=== PATIENT | female | born 1985 | race Caucasian/White ===

== ENCOUNTER → 2016-10-23 | Outpatient (CLI) | payer BC ==
[2016-10-23 17:59] LABS: Rheumatoid Factor, Qnt <9 IU/mL (<12)
[2016-10-23 18:00] LABS: C Reactive Protein <5.0 mg/L (<10.0)
[2016-10-24 01:29] LABS: ANA w/Reflex to Titer NEGATIVE (NEGATIVE); RNP AB Interpretation NEGATIVE (NEGATIVE)
[2016-10-24 11:03] LABS: HLA B27 NEGATIVE; HLA B27 Comment SEEBELOW
[2016-10-26 08:21] LABS: Lyme IgG/IgM 0.4 Index; Lyme IgG/IgM Interp NEGATIVE (NEGATIVE)
== END | disposition home or self-care (01) ==
LOC: LABWHC1 17:26
PROVIDERS: ATTEND Nurse Practitioner Family
DX: M26.609 Unspecified temporomandibular joint disorder, unspecified side (principal); M25.50 Pain in unspecified joint; M54.2 Cervicalgia; H93.233 Hyperacusis, bilateral; H92.03 Otalgia, bilateral
CPT/HCPCS: 36415; 85652; 86038; 86140; 86235; 86431; 86618; 86812

== ENCOUNTER 2018-02-28 17:49 | Emergency (ER) | payer BC ==
[2018-02-28 18:03] VITALS: RESP 18
--- NOTE | 2018-02-28 18:24 | XR ---
EXAMINATION TYPE: XR chest 2V DATE OF EXAM: 02/28/2018 COMPARISON: NONE HISTORY: Cough and congestion TECHNIQUE: Frontal and lateral views of the chest are obtained. FINDINGS: Heart and mediastinum are normal. Lungs are clear. Diaphragm is normal. Bony thorax appear s normal. IMPRESSION: Normal chest
--- NOTE | 2018-02-28 19:54 | ED ---
General Adult HPI - General Chief complaint: Upper Respiratory Infection Stated complaint: chest congestion/vomiting Time Seen by Provider: 02/28/18 18:43 Source: patient, RN notes reviewed Mode of arrival: ambulatory Limitations: no limitations - History of Present Illness Initial comments: Patient 32-year-old female presenting to the emergency room today with a chief complaint of cough congestion over the last 2 months. Patient does admit that she's had pain to the left side of the chest wall into the back. States that she has been seen by the family doctor multiple times for this. Was started on 2 different rounds of antibiotics. Was given steroids as well. She states she' s had little relief. States still expressing some pain. Does admit that it's worse with coughing and congestion. She denies any other symptoms. Denies any control use. Denies any long travel. leg pain. Patient denies any recent fever, chills, shortness of breath, chest pain, back pain, abdominal pain , dysuria or hematuria, constipation or diarrhea, headaches or visual changes, or any other complaints. - Related Data Home Medications Medication Instructions Recorded Confirmed Baclofen [Lioresal] 10 mg PO HS 08/16/14 08/16/14 Control 08/16/14 08/16/14 DULoxetine HCL [Cymbalta] 60 mg PO DAILY 08/16/14 08/16/14 HYDROcodone/APAP 7.5-325MG [[place] 1 each PO DAILY PRN 08/16/14 08/16/14 7.5-325] Previous Rx's Medication Instructions Recorded Azithromycin [Zithromax Z-pack] 0 mg PO DIRECTED #6 tab 02/28/18 Benzonatate [Tessalon Perles] 100 mg PO TID PRN #20 capsule 02/28/18 Ibuprofen [Motrin] 600 mg PO Q6HR PRN #40 day 02/28/18 predniSONE 50 mg PO DAILY #5 tab 02/28/18 Allergies Allergy/AdvReac Type Severity Reaction Status Date / Time No Known Allergies Allergy Verified 08/16/14 17:50 Review of Systems ROS Statement: Those systems with pertinent positive or pertinent negative responses have been documented in the HPI. ROS Other: All systems not noted in ROS Statement are negative. Past Medical History Past Medical History: Fibromyalgia History of Any Multi-Drug Resistant Organisms: None Reported Past Surgical History: Section Past Psychological History: Anxiety, Depression Smoking Status: Former smoker Past Alcohol Use History: Rare Past Drug Use History: Marijuana General Exam - General Exam Comments Initial Comments: General: The patient is awake and alert, in no distress, and does not appear acutely ill. Eye: Pupils are equal, round and reactive to light, extra-ocular movements are intact. No nystagmus. There is normal conjunctiva bilaterally. No signs of icterus. Ears, nose, mouth and throat: There are moist mucous membranes and no oral lesions. Neck: The neck is supple, there is no tenderness or JVD. Cardiovascular: There is a regular rate and rhythm. No murmur, rub or gallop is appreciated. Tender to palpation over the left side of the chest wall. Respiratory: Lungs are clear to auscultation, respirations are non-labored, breath sounds are equal. No wheezes, stridor, rales, or rhonchi. Musculoskeletal: Normal ROM, no tenderness. Strength 5/5. Sensation intact. Pulses equal bilaterally 2+. Neurological: A&O x 3. CN II-XII intact, There are no obvious motor or sensory deficits. Coordination appears grossly intact. Speech is normal. Skin: Skin is warm and dry and no rashes or lesions are noted. Psychiatric: Cooperative, appropriate mood & affect, normal judgment. Limitations: no limitations Course Vital Signs 02/28/18 18:00 Temperature 98.4 F Pulse Rate 98 Respiratory 18 Rate Blood Pressure 135/90 O2 Sat by Pulse 99 Oximetry Medical Decision Making - Medical Decision Making Case discussed in detail with attending physician Dr. Corey. Patient's chest x-ray reviewed is negative for any acute abnormality. Patient does admit that she's had this cough is congestion over the last 2 months with some pain into the left side of the chest wall. Pain is reproduced on palpation to the chest. Patient does admit that she's tried antibiotics in the past but is been over a month she's had increased sputum production recently. Patient denies any travel. Denies any leg pain. Patient's vital stable. Patient will be treated with azithromycin, steroids, anti-inflammatories for pain. Follow-up family doctor. Disposition Clinical Impression: Costochondritis Disposition: HOME SELF-CARE Condition: Good Instructions: Costochondritis (ED) Additional Instructions: Please use medication as discussed. Please follow-up with family doctor in the next 2 days of symptoms have not improved. Please return to emergency room if the symptoms increase or worsen or for any other concerns. Prescriptions: Azithromycin [Zithromax Z-pack] 0 mg PO DIRECTED #6 tab Benzonatate [Tessalon Perles] 100 mg PO TID PRN #20 capsule PRN Reason: Cough Ibuprofen [Motrin] 600 mg PO Q6HR PRN #40 day PRN Reason: Pain predniSONE 50 mg PO DAILY #5 tab Is patient prescribed a controlled substance at d/c from ED?: No Referrals: Liv Shea MD [Primary Care Provider] - 1-2 days Time of Disposition: 19:57
[2018-02-28 20:21] VITALS: BP 111/65; PULSE 84; TEMP 97.5
== END 2018-02-28 20:21 | disposition home or self-care (01) ==
LOC: EC 17:49
DX: M94.0 Chondrocostal junction syndrome [Tietze] (principal); R05 Cough; R11.0 Nausea; M79.7 Fibromyalgia; F41.9 Anxiety disorder, unspecified; F32.9 Major depressive disorder, single episode, unspecified; Z87.891 Personal history of nicotine dependence; Z79.3 Long term (current) use of hormonal contraceptives; Z79.899 Other long term (current) drug therapy
CPT/HCPCS: 71046; 99283

== ENCOUNTER → 2018-03-18 | Outpatient (CLI) | payer BC ==
--- NOTE | 2018-03-18 09:43 | CT ---
EXAMINATION TYPE: CT chest wo con DATE OF EXAM: 03/18/2018 COMPARISON: Chest x-ray February 28, 2018 HISTORY: Cough CT DLP: 243.1 mGycm. Automated Exposure Control for Dose Reduction was Utilized. TECHNIQUE: CT scan of the thorax is performed without IV contrast. High resolution protocol with 1 m m sequences obtained in 10 mm intervals in supine and prone technique FINDINGS: LUNGS: The lungs are grossly clear, there is no suspicious consolidation. No suspicious peripheral r eticulation or linear fibrosis identified bilaterally. No bronchiectasis is seen. There is no pleural effusion or pneumothorax seen. The tracheobronchial tree is patent. MEDIASTINUM: Lack of IV contrast is noted to limit evaluation for mediastinal and especially hilar ad enopathy. There are no definitive greater than 1 cm hilar or mediastinal lymph nodes. No cardiomega ly or pericardial effusion is seen. OTHER: No additional significant abnormality is seen. IMPRESSION: No suspicious acute or chronic pulmonary process.
== END ==
LOC: RADCTMAIN 06:54
PROVIDERS: ATTEND Internal Medicine Critical Care Medicine
DX: R05 Cough (principal)
CPT/HCPCS: 36415; 71250; 86001; 86606; 86609

== ENCOUNTER 2018-03-19 10:24 | Day surgery (SDC) | payer BC ==
[~2018-03-19 10:24] MED LIST: ALBUTEROL NEB (CONC) 2.5 MG/0.5 ML INHALATION ONE; ATROPINE SULFATE 0.4 MG/ML 1 ML VIAL IM ONE; LACTATED RINGERS 1,000 ML IV ONE; LACTATED RINGERS 1,000 ML IV SCH; LIDOCAINE 1% 20 ML VIAL (10MG/ML) FOR IV START INTRADERMA PRN; LIDOCAINE VISCOUS 2000 MG/100 ML BOTTLE MUCOUS MEM ONE
[2018-03-19 10:56] VITALS: TEMP 99
[2018-03-19] MEDS ORDERED: fentaNYL (PF) 50 MCG/ML 2 ML AMP ONE (12:04)
[2018-03-19] MEDS ORDERED: LIDOCAINE 1% INJ 10MG/ML (20 ML MDV) ONE (12:04)
[2018-03-19] MEDS ORDERED: diphenhydrAMINE 50 MG/ML 1 ML VIAL ONE (12:04)
[2018-03-19] MEDS ORDERED: PROPOFOL 10 MG/ML 20 ML VIAL IV ONE (12:04)
[2018-03-19] MEDS ORDERED: KETAMINE 10 MG/ML 20 ML VIAL ONE (12:04)
[2018-03-19] MEDS ORDERED: MIDAZOLAM 2 MG/2 ML VIAL ONE (12:04)
[2018-03-19] MEDS ORDERED: LIDOCAINE 2% INJ 20 MG/ML INTRATRACH ONE (12:22)
[2018-03-19 12:48] VITALS: BP 98/57; PULSE 108; RESP 18
--- NOTE | 2018-03-19 12:56 | PCN ---
PROCEDURE NOTE PROCEDURE: Bronchoscopy airway examination, therapeutic lavage, BAL right middle lobe. PREOPERATIVE DIAGNOSIS: Bronchitis. POSTOP DIAGNOSIS: Bronchitis. OPERATORS: 1. Aime Guo MD. 2. ELY Valentino. HOTEL RESERVATIONIST provided general anesthesia, unconscious sedation. The patient's. procedure was then in room #1 in the endoscopy suite and there was universal timeout and informed consent. After the patient was adequately sedated, the bronchoscope was inserted through the right nostril. It passed through the right nasopharynx into the oropharynx. The hypopharynx was identified and topicalized. The hypopharyngeal structures including anterior commissure, true cords, false cords, arytenoids, piriform sinuses, right and left vallecula and epiglottis all appeared relatively normal. After topicalization, bronchoscope was pushed through the glottic opening into the trachea. Trachea appeared normal. Tracheal alvin was sharp. Right and left mainstem were topicalized. Right upper lobe and its 3 segments, right middle lobe and its 2 segments, right lower lobe and its 5 segments, left upper lobe proper and its 2 segments, lingula and its 2 segments and left lower lobe and its 4 segments all have similar findings of very mild bronchitis. There was no mucosal friability. There was no mass or lesion. There was no significant secretions noted. There was no bleeding. The bronchoscope was wedged into the right middle lobe. The BAL took place. The patient tolerated the procedure well. The patient will be recovered. There was no immediate complication. MMODL / IJN: [id number] /
[2018-03-19 17:22] LABS: Appearance,BF Hazy; Color,BF Colorless; Nucleated Cells, Body Fluid 36 /uL; RBC, Body Fluid 9 /uL
[2018-03-19 17:26] LABS: Mononuclear WBC,Body Fluid 60 %; Polynuclear WBC,Body Fluid 40 %; Total Cells Counted,Body Fluid 100
[2018-03-19] MEDS ORDERED: LIDOCAINE HCL/PF 20 MG/ML ML INHALATION ONE (20:00)
== END 2018-03-19 13:15 | disposition home or self-care (01) ==
LOC: ORWHC2ENDO 10:24
PROVIDERS: ATTEND Internal Medicine Critical Care Medicine
DX: J40 Bronchitis, not specified as acute or chronic (principal); M79.7 Fibromyalgia; Z79.899 Other long term (current) drug therapy; Z87.891 Personal history of nicotine dependence; Z79.1 Long term (current) use of non-steroidal anti-inflammatories (NSAID)
CPT/HCPCS: 94640; 81025; 87798 ×3; 87496; 87498; 87529; 88108; 88305; 89050; 87252; 87502; 87634; 87070; 87205; 87116; 87102; 87206; 31624; J2001 ×3; J2250; J0461; J1200; J3010; J2704

== ENCOUNTER 2019-12-09 05:55 | Inpatient (IN) | payer BC ==
[2019-12-04 11:29] VITALS: BMI 32.4
--- NOTE | 2019-12-08 12:32 | P.HPOB ---
History of Present Illness H&P Date: 12/08/19 Chief Complaint: Repeat Section This patient is a pleasant 34 yr female estimated date of confinement 12/15/2019 estimated gestational age 39 1/7 weeks who presents for requested repeat section. has been uncomplicated. Review of Systems Genitourinary: Reports Menstruation: Reports amenorrhea Past Medical History Past Medical History: Fibromyalgia Additional Past Medical History / Comment(s): "mold found in lungs on bronchoscopy last year", History of Any Multi-Drug Resistant Organisms: None Reported Past Surgical History: Section Past Anesthesia/Blood Transfusion Reactions: Motion Sickness Past Psychological History: No Psychological Hx Reported Smoking Status: Former smoker Past Alcohol Use History: None Reported Past Drug Use History: None Reported - Past Family History Mother Family Medical History: Cancer Medications and Allergies Home Medications Medication Instructions Recorded Confirmed Type Iron(Dose Unknown) 1 tab PO DAILY 12/04/19 12/04/19 History Allergies Allergy/AdvReac Type Severity Reaction Status Date / Time No Known Allergies Allergy Verified 12/04/19 11:23 Exam - OBG Physical Exam Abdomen: bowel sounds normal Vulva: both: normal Vagina: normal moisture, no discharge Cervix: no lesion, no discharge Uterus: enlarged (Fundal height is 39 cm) Results bloodwork: O positive, Rubella Non-Immune, RPR-HepB negative, Glucola 114, GBS was negative, Ultrasounds have show normal anatomy/growth. Assessment and Plan Assessment: This is a pleasant 34 yr female 39 weeks gestation requesting repeat section. Plan is repeat LT C/S. I have discussed this surgery and risks: infection, bleeding, possible injury to bowel/bladder/vessels/ and/or other organs. Risk of DVT/PE. All of the patients questions were answered and a written consent obtained. (1) 39 weeks gestation of Status: Acute Code(s): Z3A.39 - 39 WEEKS GESTATION OF SNOMED Code(s): 39204594 (2) Previous delivery affecting Status: Acute Code(s): O34.219 - MATERNAL CARE FOR UNSP TYPE SCAR FROM PREVIOUS DEL SNOMED Code(s): 782384369
[2019-12-09] MEDS ORDERED: CITRIC ACID-SODIUM CITRATE 15 ML CUP PO ONE (06:08)
[2019-12-09] MEDS ORDERED: LACTATED RINGERS 1,000 ML IV ONE (06:08)
[2019-12-09 06:42] LABS: Basophils # (A) 0.1 k/uL (0-0.2); Basophils % (A) 1 %; Eosinophils # (A) 0.1 k/uL (0-0.7); Eosinophils % (A) 1 %; HCT 32.1 % (34.0-46.0); HGB 10.4 gm/dL (11.4-16.0); Lymphocytes # (A) 1.8 k/uL (1.0-4.8); Lymphocytes % (A) 17 %; MCH 28.7 pg (25.0-35.0); MCHC 32.3 g/dL (31.0-37.0); MCV 88.9 fL (80.0-100.0); Mean Platelet Volume 8.7; Monocytes # (A) 0.5 k/uL (0-1.0); Monocytes % (A) 5 %; Neutrophils # (A) 7.3 k/uL (1.3-7.7); Neutrophils % (A) 73 %; Platelet Count 322 k/uL (150-450); RBC 3.61 m/uL (3.80-5.40); RDW 14.3 % (11.5-15.5); WBC 10.1 k/uL (3.8-10.6)
[2019-12-09] MEDS: LACTATED RINGERS 1,000 ML IV SCH ×2 (07:27→16:28)
[2019-12-09] MEDS ORDERED: NALOXONE 0.4 MG/ML 1 ML VIAL IV PRN ×2 (08:28→08:54)
[2019-12-09] MEDS ORDERED: MORPHINE SULFATE 2 MG/ML SYRINGE IVP PRN (08:28)
[2019-12-09] MEDS ORDERED: diphenhydrAMINE 50 MG/ML 1 ML VIAL IVP PRN ×2 (08:28→08:54)
[2019-12-09] MEDS ORDERED: ONDANSETRON 4 MG/2 ML VIAL IVP PRN ×2 (08:28→08:54)
--- NOTE | 2019-12-09 08:32 | P.OP ---
Date of Procedure: 12/09/19 Preoperative Diagnosis: #1: 39 and one sevenths week intrauterine . #2: Previous section desires repeat. Postoperative Diagnosis: Same, nuchal cord 1 Procedure(s) Performed: Repeat low transverse section Anesthesia: spinal Surgeon: Chris Morales Head Holder #1: Keri Johnson Estimated Blood Loss (ml): 800 Pathology: none sent Condition: stable Disposition: observation Indications for Procedure: Please see dictated H&P for intimate details of this patient's admission. Brief summary is a pleasant 34-year-old 2 para 1 female 39 and one sevenths weeks gestation admitted to labor and delivery for elective repeat section. Patient understands the surgery and risks and risks of infection, bleeding, possible injury bowel, bladder, vessels, and/or other organs. All the patient's questions are answered written consent is obtained. Operative Findings: This is a vigorous viable female Apgars 8 and 9 delivery time is 0804 hrs. and nuchal cord 1 that was loose. Description of Procedure: This patient has a Lu catheter placed to straight drain. She subsequently taken to the operating room where she sat up and spinal anesthetic is admin istered without incident. With an adequate level of anesthesia she has abdominal prep and drape. Scalpels and taken Pfannenstiel skin incision is then made. A second scalpel is taken down the fascia the fascia scored with a knife. Fascial incision extended bilaterally using the Worley scissors. Fascia is then dissected off the rectus muscles sharply. The rectus muscles are the peritoneum identified and entered sharply. Peritoneal incision extended superior and inferior without difficulty. Bladder blade is then placed. The bladder is very low on the lower uterine segment therefore scalpel is taken low transverse uterine incision is made. Using a hemostat I into the uterine cavity bluntly and there is loss of clear fluid. This incision is extended bluntly. 's head is then guided through the incision with fundal pressure delivered. Mouth and nares are bulb suctioned. There is a loose nuchal cord which is reduced. We then deliver the rest this 's body. This is a vigorous viable female infant Apgars 8 and 9 delivery time was 0804 hrs. Umbilical cord is doubly clamped and cut does appear to be trivascular. Placenta is then manually extracted intact. Uterus is then externalized uterine incision demarcated with Montalvo clamps. Uterine incision is closed using 0 Vicryl running locked fashion 2 layers. Excellent hemostasis is noted. Excess fluid is removed from the abdomen and pelvis. Uterus tubes and ovaries appear normal for term gestation. Uterus placed back into the abdomen. Parietal peritoneum was then identified and closed using 0 Vicryl running fashion. Rectus muscle reapproximate 0 Vicryl interrupted fashion. Fascial incision is then closed using 0 PDS. Fascial incision is intact and hemostatic. Subcutaneous tissues and closed using a 3-0 Vicryl. Skin is and closed using leoncio. All counts correct 3. There are no complications. Infant and mother's taken to the birthing suite in satisfactory condition
[2019-12-09] MEDS ORDERED: ACETAMINOPHEN TAB 325 MG TAB PO PRN (08:54)
[2019-12-09] MEDS ORDERED: diphenhydrAMINE 25 MG CAP PO PRN (08:54)
[2019-12-09] MEDS ORDERED: OXYTOCIN 20 UNITS/1000 ML NS 1,000 ML IV SCH (08:54)
[2019-12-09] MEDS ORDERED: ZOLPIDEM 5 MG TAB PO PRN (08:54)
[2019-12-09] MEDS ORDERED: HYDROcodone/APAP 5-325MG 1 EACH TAB PO PRN (08:54)
[2019-12-09] MEDS ORDERED: SIMETHICONE 80 MG CHEWABLE PO PRN (08:54)
[2019-12-09] MEDS ORDERED: METOCLOPRAMIDE 5 MG/ML 2 ML VIAL IVP PRN (08:54)
[2019-12-09] MEDS ORDERED: LANOLIN CREAM 5 GM TUBE TOPICAL PRN (08:54)
[2019-12-09] MEDS: SENNOSIDES-DOCUSATE SODIUM 1 EACH TAB PO SCH ×2 (09:09→19:58)
[2019-12-09] MEDS ORDERED: MEASLES-MUMPS-RUBELLA VACC/PF 12,500 UNIT/0.5 ML VIAL SQ ONE (16:00)
[2019-12-09] MEDS: KETOROLAC 15 MG/ML 1 ML VIAL IVP PRN (19:57)
[2019-12-10] MEDS: KETOROLAC 15 MG/ML 1 ML VIAL IVP PRN (04:44)
--- NOTE | 2019-12-10 06:28 | P.PNOBGPC ---
Subjective - Subjective Patient reports: Reports appetite normal, Reports voiding normally, Reports pain well controlled, Reports ambulating normally : doing well Objective - Vital Signs Latest vital signs: Vital Signs Temp Pulse Resp BP Pulse Ox 12/10/19 00:46 15 12/10/19 00:00 98.1 F 61 16 106/66 12/09/19 22:36 15 12/09/19 21:00 16 97 12/09/19 20:00 97.9 F 67 16 119/66 12/09/19 19:00 97.9 F 67 16 119/66 12/09/19 16:51 16 96 12/09/19 16:00 97.7 F 65 16 110/58 96 12/09/19 15:00 16 12/09/19 13:28 98 12/09/19 13:00 16 12/09/19 11:50 97.6 F 76 16 110/66 98 12/09/19 11:28 16 12/09/19 10:28 82 16 113/58 98 12/09/19 09:58 98 F 81 16 112/68 99 12/09/19 09:28 86 16 105/54 98 12/09/19 09:13 75 16 100/59 98 12/09/19 08:58 87 16 105/58 98 12/09/19 08:43 80 16 93/51 98 12/09/19 08:28 97.3 F L 79 16 92/51 99 Intake and Output 12/09/19 12/09/19 12/10/19 14:59 22:59 06:59 Output Total 236 720 7828 Balance -100 -500 -1000 Output: Urine 540 249 4903 Other: Voiding Method Indwelling Catheter Indwelling Catheter # Voids 1 - Exam Lungs: bilateral: normal Chest: Normal S1, Normal S2 Extremities: Present: normal Abdomen: Present: normal appearance, soft. Absent: distention, tenderness Incision: Present: normal, dry, intact Uterus: Present: normal, firm - Labs Labs: Abnormal Lab Results - Last 24 Hours (Table) 12/09/19 Range/Units 06:19 RBC 3.61 L (3.80-5.40) m/uL Hgb 10.4 L (11.4-16.0) gm/dL Hct 32.1 L (34.0-46.0) % Assessment and Plan Assessment: Postoperative day #1. Patient is resting without complaints. Vital signs are stable and she is afebrile. Uterus is firm nontender and her incision is intact and dry. CBC is pending at time of this dictation. My impression this is a normal postoperative course. Plan is to continue routine postoperative care, check a CBC, continue ambulation, allow the patient to shower, and may very well go home tomorrow if she continues to do well (1) 39 weeks gestation of Current Visit: No Status: Acute Code(s): Z3A.39 - 39 WEEKS GESTATION OF SNOMED Code(s): 80909619 (2) Previous delivery affecting Current Visit: No Status: Acute Code(s): O34.219 - MATERNAL CARE FOR UNSP TYPE SCAR FROM PREVIOUS DEL SNOMED Code(s): 543361118
[2019-12-10] MEDS: LACTATED RINGERS 1,000 ML IV SCH ×2 (06:45→18:05)
--- NOTE | 2019-12-10 07:18 | P.PN ---
Progress Note - Text Progress Note Date: 12/10/19 Patient seen and examined. POD #1 s/p . Patient resting in bed with mild pain. Patient reports ambulation without difficulty. Patient able to use restroom. Patient denies fever, chills, parathesias, headache, chest pain, SOB. Procedure site is clean, dry, intact, and without erythema.
[2019-12-10 07:26] LABS: Basophils % (A) 0 %; Eosinophils # (A) 0.1 k/uL (0-0.7); Eosinophils % (A) 1 %; HCT 29.1 % (34.0-46.0); HGB 9.2 gm/dL (11.4-16.0); Lymphocytes # (A) 1.2 k/uL (1.0-4.8); Lymphocytes % (A) 11 %; MCH 28.4 pg (25.0-35.0); MCHC 31.5 g/dL (31.0-37.0); MCV 90.1 fL (80.0-100.0); Mean Platelet Volume 9.9; Monocytes # (A) 0.6 k/uL (0-1.0); Monocytes % (A) 6 %; Neutrophils % (A) 79 %; Platelet Count 267 k/uL (150-450); RBC 3.23 m/uL (3.80-5.40); RDW 14.3 % (11.5-15.5); WBC 10.1 k/uL (3.8-10.6)
[2019-12-10] MEDS: SENNOSIDES-DOCUSATE SODIUM 1 EACH TAB PO SCH (08:06)
[2019-12-10] MEDS: IBUPROFEN 600 MG TAB PO PRN (17:52)
--- NOTE | 2019-12-11 06:27 | P.PNOBGPC ---
Subjective - Subjective Patient reports: Reports appetite normal, Reports voiding normally, Reports pain well controlled, Reports ambulating normally : doing well Objective - Vital Signs Latest vital signs: Vital Signs Temp Pulse Resp BP Pulse Ox 12/11/19 00:00 98.3 F 70 16 106/50 12/10/19 16:00 98.4 F 82 18 126/64 99 12/10/19 12:00 98.8 F 90 18 112/58 98 12/10/19 08:00 97.8 F 82 18 99/52 99 Intake and Output 12/10/19 12/10/19 12/11/19 14:59 22:59 06:59 Other: # Voids 1 2 2 - Exam Lungs: bilateral: normal Chest: Normal S1, Normal S2 Extremities: Present: normal Abdomen: Present: normal appearance, soft. Absent: distention, tenderness Incision: Present: normal, dry, intact Uterus: Present: normal, firm - Labs Labs: Abnormal Lab Results - Last 24 Hours (Table) 12/10/19 Range/Units 07:11 RBC 3.23 L (3.80-5.40) m/uL Hgb 9.2 L (11.4-16.0) gm/dL Hct 29.1 L (34.0-46.0) % Neutrophils # 8.0 H (1.3-7.7) k/uL Assessment and Plan Assessment: Post operative day #2. Patient is resting without new complaints and wishes to go home. Vital signs are stable she's afebrile. Uterus is firm nontender and her incision is intact and dry. CBC yesterday was good. Patient is tolerating regular diet, ambulating, urinating without difficulty. My impression this is a normal postoperative course. Plan is to continue routine postoperative care discharge home later today (1) 39 weeks gestation of Current Visit: No Status: Acute Code(s): Z3A.39 - 39 WEEKS GESTATION OF SNOMED Code(s): 50381259 (2) Previous delivery affecting Current Visit: No Status: Acute Code(s): O34.219 - MATERNAL CARE FOR UNSP TYPE SCAR FROM PREVIOUS DEL SNOMED Code(s): 920960535
--- NOTE | 2019-12-11 06:33 | P.DS ---
Providers Date of admission: 12/09/19 05:55 Expected date of discharge: 12/11/19 Attending physician: Chris Morales Primary care physician: Stated None - Discharge Diagnosis(es) (1) 39 weeks gestation of Current Visit: No Status: Acute (2) Previous delivery affecting Current Visit: No Status: Acute Hospital Course: Please see dictated H&P for intimate details of this patient's admission. Brief summary this is a pleasant 34-year-old 2 para 1 female 39 and one sevenths weeks gestation admitted to labor and delivery for elective repeat section. Patient is admitted she is uncomplicated repeat low transverse section for viable female . Please see dictated operative note. Postoperatively she does well and on postoperative 2 spell be stable for discharge home follow up with me in 1 week. Patient instructed to call should any fevers chills or excessive abdominal pain. Procedures: Repeat low transverse section Plan - Discharge Summary Discharge Rx Participant: Yes New Discharge Prescriptions: New Ibuprofen [Motrin] 600 mg PO Q6HR PRN #40 tab PRN Reason: Mild Pain Or Fever >= 100.5 HYDROcodone/APAP 5-325MG [[place] 5-325] 1 each PO Q4HR PRN #18 tab PRN Reason: Moderate Pain No Action Iron(Dose Unknown) 1 tab PO DAILY Discharge Medication List Iron(Dose Unknown) 1 tab PO DAILY 12/04/19 [History] HYDROcodone/APAP 5-325MG [[place] 5-325] 1 each PO Q4HR PRN #18 tab 12/11/19 [Rx] Ibuprofen [Motrin] 600 mg PO Q6HR PRN #40 tab 12/11/19 [Rx] Follow up Appointment(s)/Referral(s): Chris Morales MD [STAFF PHYSICIAN] - 12/18/19 9:15 am (Please see me on January 19 for a visit as well at 10:15 AM.) Patient Instructions/Handouts: (DC) Activity/Diet/Wound Care/Special Instructions: No heavy lifting or strenuous activity for 6 weeks. No intercourse or anything per vagina for 6 weeks. Please call if any fever, chills, excessive vaginal bleeding, and/or abdominal pain. Discharge Disposition: HOME SELF-CARE
[2019-12-11] MEDS: IBUPROFEN 600 MG TAB PO PRN (07:44)
[2019-12-11] MEDS: SENNOSIDES-DOCUSATE SODIUM 1 EACH TAB PO SCH (07:44)
[2019-12-11 10:43] VITALS: BP 116/79; PULSE 79; RESP 18; TEMP 97.9
== END 2019-12-11 10:40 | disposition home or self-care (01) | DRG 788 ==
LOC: 4FBP 05:55
PROVIDERS: ADMIT Obstetrics & Gynecology; ATTEND Obstetrics & Gynecology
PROC: 3E0134Z Introduction of Serum, Toxoid and Vaccine into Subcutaneous Tissue, Percutaneous Approach (ICD-10-PCS; 2019-12-09)
PROC: 10D00Z1 Extraction of Products of Conception, Low, Open Approach (ICD-10-PCS; principal; 2019-12-09 08:00)
DX: O34.211 Maternal care for low transverse scar from previous cesarean delivery (principal); M79.7 Fibromyalgia; O99.89 Other specified diseases and conditions complicating pregnancy, childbirth and the puerperium; O69.81X0 Labor and delivery complicated by cord around neck, without compression, not applicable or unspecified; Z23 Encounter for immunization; Z98.890 Other specified postprocedural states; Z87.891 Personal history of nicotine dependence; Z79.899 Other long term (current) drug therapy; Z37.0 Single live birth; Z3A.39 39 weeks gestation of pregnancy; Z80.9 Family history of malignant neoplasm, unspecified
CPT/HCPCS: 85025; 86850; 86900; 86901; 90707

== ENCOUNTER 2020-05-30 18:12 | Emergency (ER) | payer BC ==
[2020-05-30 18:16] VITALS: BP 105/56; PULSE 99; RESP 20; TEMP 98
[2020-05-30] MEDS ORDERED: MORPHINE SULFATE 4 MG/ML SYRINGE IM STA (18:30)
--- NOTE | 2020-05-30 18:53 | XR ---
EXAMINATION TYPE: XR ankle complete LT DATE OF EXAM: 05/30/2020 COMPARISON: NONE HISTORY: Pain TECHNIQUE: 3 views FINDINGS: There is soft tissue swelling over the lateral malleolus. Ankle mortise is anatomic. I see no fracture nor dislocation. Joint spaces are normal. IMPRESSION: Soft tissue swelling. No fracture.
--- NOTE | 2020-05-30 19:20 | XR ---
EXAMINATION TYPE: XR foot complete LT DATE OF EXAM: 05/30/2020 COMPARISON: NONE HISTORY: Pain TECHNIQUE: 3 views FINDINGS: Metatarsals are intact. I see no fracture nor dislocation. Joint spaces are normal. IMPRESSION: Negative left foot exam.
[2020-05-30] MEDS ORDERED: ACET/COD 300 MG/30 MG STARTER PACK 6 TAB BTL PO STA (20:08)
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
== END 2020-05-30 20:34 | disposition home or self-care (01) ==
LOC: EC 18:12
DX: M25.572 Pain in left ankle and joints of left foot (principal); M79.7 Fibromyalgia; Z87.891 Personal history of nicotine dependence; V18.2XXA Unspecified pedal cyclist injured in noncollision transport accident in nontraffic accident, initial encounter; Y93.55 Activity, bike riding
CPT/HCPCS: 73610; 73630; 99284; 29515; J2270

== ENCOUNTER 2021-07-01 05:43 | Inpatient (IN) | payer BC ==
[2021-06-29 14:45] VITALS: BMI 33.7
--- NOTE | 2021-06-30 07:38 | P.HPOB ---
History of Present Illness H&P Date: 06/30/21 Chief Complaint: Repeat section and also family planning This patient is a pleasant 35-year-old 3 para 2 female estimated date of confinement 07/04/2021 estimated gestational age 39-4/7 weeks who presents to labor and delivery for requested repeat section and also requesting permanent sterilization. Patient's care has been uncomplicated with the exception of some mild anemia. Patient is requesting tubal ligation understands this is permanent. Review of Systems Genitourinary: Reports Menstruation: Reports amenorrhea Past Medical History Past Medical History: Fibromyalgia Additional Past Medical History / Comment(s): "mold found in lungs on bronchoscopy 2017", vertigo History of Any Multi-Drug Resistant Organisms: None Reported Past Surgical History: Section, Orthopedic Surgery Additional Past Surgical History / Comment(s): BRONCHOSCOPY. LT ANKLE SX Past Anesthesia/Blood Transfusion Reactions: Motion Sickness Past Psychological History: No Psychological Hx Reported Smoking Status: Former smoker Past Alcohol Use History: None Reported Past Drug Use History: None Reported - Past Family History Mother Family Medical History: Cancer Father Family Medical History: Cancer Medications and Allergies Home Medications Medication Instructions Recorded Confirmed Type Pnv No.95/Ferrous Fum/Folic AC 1 each PO DAILY 06/29/21 06/29/21 History [ Multivitamin Tablet] Allergies Allergy/AdvReac Type Severity Reaction Status Date / Time No Known Allergies Allergy Verified 06/29/21 14:39 Exam - OBG Physical Exam Abdomen: bowel sounds normal, no diffuse tenderness, no bruit present, no guarding noted, no hepatomegaly, no splenomegaly, no mass Vulva: both: normal Vagina: normal moisture, no discharge Cervix: no lesion, no discharge Uterus: enlarged (Fundal height 39 cm) Results labs show she is O+, rubella immune, RPR nonreactive, hepatitis B negative, HIV is nonreactive, Glucola was normal, group B strep was negative, anatomy and growth ultrasounds have been normal, Assessment and Plan Assessment: This is a pleasant 35-year-old 3 para 2 female 39-4/7 weeks gestation admitted to labor and delivery for elective repeat section and also requesting permanent sterilization. Plan is repeat low transverse section and bilateral partial salpingectomy. Patient does understand that a tubal ligation is considered permanent however there is a failure rate of approximately 3-4 per thousand procedures done. She understands if she did become she has a 50% chance of a tubal or an ectopic . Patient also understands that surgery itself and apparently has risks including risks of infection, bleeding, possible injury bowel, bladder, vessels, and/or other organs. All the patient's questions are answered and a written consent is obtained. (1) Family planning Status: Acute Code(s): Z30.09 - ENCOUNTER FOR OT GENERAL CNSL AND ADVICE ON CONTRACEPTION SNOMED Code(s): 644507856 (2) 39 weeks gestation of Status: Acute Code(s): Z3A.39 - 39 WEEKS GESTATION OF SNOMED Code(s): 64496447 (3) Previous delivery affecting Status: Acute Code(s): O34.219 - MATERNAL CARE FOR UNSP TYPE SCAR FROM PREVIOUS DEL SNOMED Code(s): 602131967
[2021-07-01] MEDS ORDERED: LACTATED RINGERS 1,000 ML IV SCH (06:00)
[2021-07-01] MEDS ORDERED: CITRIC ACID-SODIUM CITRATE 15 ML CUP PO ONE (06:00)
[2021-07-01] MEDS ORDERED: LACTATED RINGERS 1,000 ML IV ONE (06:00)
[2021-07-01 06:11] LABS: Anisocytosis Slight; Basophils % (A) 0 %; Eosinophils # (A) 0.2 k/uL (0-0.7); Eosinophils % (A) 1 %; HCT 38.6 % (34.0-46.0); HGB 12.7 gm/dL (11.4-16.0); Lymphocytes # (A) 1.9 k/uL (1.0-4.8); Lymphocytes % (A) 19 %; MCH 30.6 pg (25.0-35.0); MCHC 32.9 g/dL (31.0-37.0); Mean Platelet Volume 10.6; Monocytes # (A) 0.5 k/uL (0-1.0); Monocytes % (A) 4 %; Neutrophils # (A) 7.6 k/uL (1.3-7.7); Neutrophils % (A) 73 %; Platelet Count 285 k/uL (150-450); RBC 4.15 m/uL (3.80-5.40); RDW 16.4 % (11.5-15.5); WBC 10.5 k/uL (3.8-10.6)
[2021-07-01] MEDS ORDERED: MORPHINE SULFATE (PF) 0.3 MG/0.3 ML SYR ONE (07:43)
[2021-07-01] MEDS ORDERED: PHENYLEPHRINE-0.9% NACL SYG 1,000 MCG/10 ML SYRINGE ONE (07:43)
[2021-07-01] MEDS ORDERED: KETOROLAC 15 MG/ML 1 ML VIAL ONE (07:43)
[2021-07-01] MEDS ORDERED: ONDANSETRON 4 MG/2 ML VIAL ONE (07:43)
[2021-07-01] MEDS ORDERED: OXYTOCIN 30 UNITS/500 ML NS BAG IV ONE (07:43)
[2021-07-01] MEDS ORDERED: NALBUPHINE 10 MG/ML (1 ML AMP) ONE (07:43)
--- NOTE | 2021-07-01 08:40 | P.OP ---
Date of Procedure: 07/01/21 Preoperative Diagnosis: #1: 39-4/7 week intrauterine . #2: Previous section 2 desires repeat. #3: Multi parity desires permanent sterilization Postoperative Diagnosis: Same Procedure(s) Performed: Repeat low transverse section and bilateral partial salpingectomy. Anesthesia: spinal Surgeon: Chris Morales Mooner #1: Jenny Arias Estimated Blood Loss (ml): 600 Pathology: other (Bilateral fallopian tube segments) Condition: stable Disposition: floor Indications for Procedure: Please see dictated H&P for intimate details of this patient's admission. Brief summary is a pleasant 35-year-old 3 para 2 female estimated gestational age 39-4/7 weeks who presents to labor and delivery for elective repeat section she is also requesting permanent sterilization. Patient does understand a tubal ligation is considered permanent however is a failure rate of approximately 3-4 per thousand procedures done. She also understands inherently that surgery has risks including risks of infection, bleeding, possible injury bowel, bladder, vessels, and/or other organs. All the patient's questions are answered and a written consent is obtained. Operative Findings: This patient had a vigorous viable female infant Apgars 9 and 9 delivery time was 0806 hrs. weighed 9 lbs. 0 oz. Uterus, tubes, ovaries appear normal for term gestation. Description of Procedure: This patient has a Lu catheter placed to straight drain. She is subsequently taken to the operating room where she sat up and spinal anesthetic is administered without incident. An adequate level of anesthesia she has abdominal prep and drape. Scalpels and taken the previous Pfannenstiel incision is incised. A second scalpel is taken down the fascia the fascia scored with a knife. Fascial incision extended bilaterally using the Worley scissors. Fascia is dissected off the rectus muscles sharply. Rectus muscles are the peritoneum identified and entered sharply. Peritoneal incision extended superior and inferior without difficulty. Bladder blade is then placed. Bladder peritoneum was taken sharply off the lower uterine segment. Scalpels and taken low transverse uterine incision is then made. Using a hemostat I into the uterine cavity bluntly and there is loss of clear fluid this incision is extended bluntly and the 's head is guided through the incision with fundal pressure. With more fundal pressure the 's head is delivered. Mouth and nares are bulb suctioned. Is no evidence of a nuchal cord. With more fundal pressure the infant is then delivered atraumatically. This is a vigorous viable female infant Apgars are 9 and 9 delivery time is 0806 hrs. After delivery of the infant the umbilical cord is doubly clamped and cut. The is then handed off to the nurses in attendance. The placenta is then manually extracted intact. Uterus is then externalized and uterine incision demarcated with Montalvo clamps. Uterine incision closed in 0 Vicryl running locked fashion. Excellent hemostasis is noted then turned my attention left fallopian tube and approximately 4 cm from the cornual insertion a small window is made to the mesial salpinx. Using a 2-0 silk I doubly ligate a 1-2 cm segment of the tube. This is excised and handed off to pathology. Cauterization is done of the tubal ends. Excellent hemostasis is noted. Similar technique is done the right side with similar results. This done the final inspection of the tubal ends and the uterine incision appeared to be hemostatic. Excess fluid is removed from the abdomen and pelvis uterus placed back into the abdomen. Parietal peritoneum was then closed in 0 Vicryl running fashion. Rectus muscles reapproximated Vicryl interrupted fashion. Fascial incision then closed using 0 PDS. Fascial incision is intact and hemostatic. Subcutaneous tissues and closed using a 3-0 Vicryl. Skin is and closed using leoncio. All counts are correct 3. No complications. and mother taken the birthing suite in satisfactory condition.
[2021-07-01] MEDS ORDERED: ONDANSETRON 4 MG/2 ML VIAL IVP PRN (08:46)
[2021-07-01] MEDS ORDERED: ZOLPIDEM 5 MG TAB PO PRN (08:46)
[2021-07-01] MEDS ORDERED: OXYTOCIN 30 UNITS/500 ML NS 30 UNIT in SALINE 1 500ML.BAG IV SCH (08:46)
[2021-07-01] MEDS ORDERED: SIMETHICONE 80 MG CHEWABLE PO PRN (08:46)
[2021-07-01] MEDS ORDERED: LANOLIN CREAM 5 GM TUBE TOPICAL PRN (08:46)
[2021-07-01] MEDS ORDERED: NALOXONE 0.4 MG/ML 1 ML VIAL IV PRN (08:46)
[2021-07-01] MEDS ORDERED: diphenhydrAMINE 50 MG/ML 1 ML VIAL IVP PRN (08:46)
[2021-07-01] MEDS ORDERED: diphenhydrAMINE 25 MG CAP PO PRN (08:46)
[2021-07-01] MEDS: LACTATED RINGERS 1,000 ML IV SCH ×2 (14:00→20:50)
[2021-07-01] MEDS: KETOROLAC 15 MG/ML 1 ML VIAL IVP SCH ×2 (15:20→21:46)
[2021-07-01] MEDS: METOCLOPRAMIDE 5 MG/ML 2 ML VIAL IVP PRN ×2 (15:37→21:46)
[2021-07-01] MEDS: CEPHALEXIN 500 MG CAP PO SCH (20:48)
[2021-07-01] MEDS: SENNOSIDES-DOCUSATE SODIUM 1 EACH TAB PO SCH ×2 (20:48→21:40)
[2021-07-02] MEDS: KETOROLAC 15 MG/ML 1 ML VIAL IVP SCH (04:18)
--- NOTE | 2021-07-02 06:52 | P.PNOBGPC ---
Subjective - Subjective Patient reports: Reports appetite normal, Reports voiding normally, Reports pain well controlled, Reports ambulating normally : doing well Objective - Vital Signs Latest vital signs: Vital Signs Temp Pulse Resp BP Pulse Ox 07/02/21 04:00 97.8 F 68 14 102/61 97 07/02/21 00:00 97.7 F 76 14 102/63 94 L 07/01/21 20:00 97.8 F 77 14 120/68 97 07/01/21 16:00 97.2 F L 88 16 113/58 96 07/01/21 11:00 82 16 109/65 97 07/01/21 10:18 98.0 F 89 16 117/60 96 07/01/21 09:48 78 16 118/56 97 07/01/21 09:30 80 16 115/57 07/01/21 09:17 89 16 105/53 97 07/01/21 08:59 89 16 109/54 98 07/01/21 08:45 97.0 F L 77 16 109/55 100 Intake and Output 07/01/21 07/01/21 07/02/21 14:59 22:59 06:59 Output Total 2250 820 Balance -2250 -820 Output: Urine 800 600 Uretheral (Lu) 300 Emesis 200 Estimated Blood Loss 1200 Output, Quantitative 250 20 Blood Loss Other: # Voids 1 1 # Emeses 3 - Exam Lungs: bilateral: normal Chest: Normal S1, Normal S2 Extremities: Present: normal Abdomen: Present: normal appearance, soft. Absent: distention, tenderness Incision: Present: normal, dry, intact Uterus: Present: normal, firm Assessment and Plan Assessment: Postoperative day #1. Patient is resting without complaints. She is having a lot of nausea vomiting yesterday but this is resolved. Uterus is firm nontender and her incision is intact and dry. She's having normal lochia. Plan today is to advance her diet, check CBC, continue ambulation, and continue routine postoperative care. (1) Family planning Current Visit: No Status: Acute Code(s): Z30.09 - ENCOUNTER FOR OTH GENERAL CNSL AND ADVICE ON CONTRACEPTION SNOMED Code(s): 943675374 (2) 39 weeks gestation of Current Visit: No Status: Acute Code(s): Z3A.39 - 39 WEEKS GESTATION OF SNOMED Code(s): 96129702 (3) Previous delivery affecting Current Visit: No Status: Acute Code(s): O34.219 - MATERNAL CARE FOR UNSP TYPE SCAR FROM PREVIOUS DEL SNOMED Code(s): 232142592
[2021-07-02] MEDS: LACTATED RINGERS 1,000 ML IV SCH (06:55)
[2021-07-02 07:17] LABS: Basophils % (A) 0 %; Eosinophils # (A) 0.1 k/uL (0-0.7); Eosinophils % (A) 1 %; HGB 11.7 gm/dL (11.4-16.0); Lymphocytes # (A) 1.2 k/uL (1.0-4.8); Lymphocytes % (A) 9 %; MCH 29.9 pg (25.0-35.0); MCHC 31.7 g/dL (31.0-37.0); MCV 94.1 fL (80.0-100.0); Mean Platelet Volume 10.7; Monocytes # (A) 0.8 k/uL (0-1.0); Monocytes % (A) 6 %; Neutrophils # (A) 10.6 k/uL (1.3-7.7); Neutrophils % (A) 82 %; Platelet Count 220 k/uL (150-450); RBC 3.93 m/uL (3.80-5.40); RDW 15.7 % (11.5-15.5)
[2021-07-02] MEDS: CEPHALEXIN 500 MG CAP PO SCH ×2 (08:25→20:56)
[2021-07-02] MEDS: SENNOSIDES-DOCUSATE SODIUM 1 EACH TAB PO SCH ×2 (08:25→19:26)
[2021-07-02] MEDS: ACETAMINOPHEN TAB 500 MG TAB PO PRN ×2 (08:26→23:56)
[2021-07-02] MEDS: IBUPROFEN 600 MG TAB PO PRN ×2 (12:51→19:26)
--- NOTE | 2021-07-02 17:05 | P.PN ---
Progress Note - Text Progress Note Date: 07/02/21 Postoperative day 1 status post section under spinal anesthesia, and i ntrathecal morphine given for postoperative analgesia, patient doing well, there is no anesthesia related complications, Patient had no headache, vital signs stable , Assessment and plan= postop day 1 status post , doing well there is no anesthesia related complication.
[2021-07-03] MEDS: IBUPROFEN 600 MG TAB PO PRN (04:24)
--- NOTE | 2021-07-03 07:30 | P.PNOBGPC ---
Subjective - Subjective Patient reports: Reports appetite normal, Reports voiding normally, Reports pain well controlled, Reports ambulating normally : doing well Objective - Vital Signs Latest vital signs: Vital Signs Temp Pulse Resp BP Pulse Ox 07/03/21 00:00 98.5 F 64 16 122/69 07/02/21 20:00 98.5 F 64 16 122/69 07/02/21 15:52 98.5 F 74 16 114/52 07/02/21 07:57 97.5 F L 77 16 106/72 96 Intake and Output 07/02/21 07/03/21 07/03/21 22:59 06:59 14:59 Other: # Voids 1 2 - Exam Lungs: bilateral: normal Chest: Normal S1, Normal S2 Extremities: Present: normal Abdomen: Present: normal appearance, soft. Absent: distention, tenderness Incision: Present: normal, dry, intact Uterus: Present: normal, firm Assessment and Plan Assessment: Postoperative day #2. Patient is resting without complaints and wishes to go home. Uterus is firm nontender she's having normal lochia. Her incision is intact and dry. CBC yesterday showed a hemoglobin 11.7. I impression this is a normal postoperative course. Plan is to continue routine postoperative care discharge home later today (1) Family planning Current Visit: No Status: Acute Code(s): Z30.09 - ENCOUNTER FOR OTH GENERAL CNSL AND ADVICE ON CONTRACEPTION SNOMED Code(s): 527853360 (2) 39 weeks gestation of Current Visit: No Status: Acute Code(s): Z3A.39 - 39 WEEKS GESTATION OF SNOMED Code(s): 22523340 (3) Previous delivery affecting Current Visit: No Status: Acute Code(s): O34.219 - MATERNAL CARE FOR UNSP TYPE SCAR FROM PREVIOUS DEL SNOMED Code(s): 458775652
--- NOTE | 2021-07-03 07:34 | P.DS ---
Providers Date of admission: 07/01/21 05:43 Expected date of discharge: 07/03/21 Attending physician: Chris Morales Primary care physician: Stated None - Discharge Diagnosis(es) (1) Family planning Current Visit: No Status: Acute (2) 39 weeks gestation of Current Visit: No Status: Acute (3) Previous delivery affecting Current Visit: No Status: Acute Hospital Course: Please see dictated H&P for intimate details of this patient's admission. In brief summary this is a pleasant 35-year-old 3 para 2 female 39-4/7 weeks gestation admitted to labor and delivery for elective repeat section and tubal ligation. Patient is admitted she undergoes above-named surgery for viable female infant. Please see dictated delivery note. Postoperative day #2 patient was doing well is felt to be stable for discharge home follow up with me in 1 week. Procedures: Repeat low transverse section and bilateral partial salpingectomy Patient Condition at Discharge: Good Plan - Discharge Summary Discharge Rx Participant: Yes New Discharge Prescriptions: New Cephalexin [Keflex] 500 mg PO BID #14 cap Ibuprofen [Motrin] 600 mg PO Q6H PRN #40 tab PRN Reason: Pain oxyCODONE HCL [OxyIR] 5 mg PO Q4HR PRN #18 tab PRN Reason: Pain No Action Pnv No.95/Ferrous Fum/Folic AC [ Multivitamin Tablet] 1 each PO DAILY Discharge Medication List Pnv No.95/Ferrous Fum/Folic AC [ Multivitamin Tablet] 1 each PO DAILY 06/29/21 [History] Cephalexin [Keflex] 500 mg PO BID #14 cap 07/02/21 [Rx] Ibuprofen [Motrin] 600 mg PO Q6H PRN #40 tab 07/02/21 [Rx] oxyCODONE HCL [OxyIR] 5 mg PO Q4HR PRN #18 tab 07/02/21 [Rx] Follow up Appointment(s)/Referral(s): Chris Morales MD [STAFF PHYSICIAN] - 08/12/21 11:15 am (Please come for an incision check on July 11 at 8:30 AM. Also see me for a check on August 12 at 11:15 AM) Patient Instructions/Handouts: (DC) Activity/Diet/Wound Care/Special Instructions: No heavy lifting or strenuous activity for 6 weeks. No intercourse or anything per vagina for 6 weeks. Please call if any fever, chills, excessive vaginal bleeding, and/or abdominal pain. Discharge Disposition: HOME SELF-CARE
[2021-07-03] MEDS: CEPHALEXIN 500 MG CAP PO SCH (08:18)
[2021-07-03] MEDS: SENNOSIDES-DOCUSATE SODIUM 1 EACH TAB PO SCH (08:19)
[2021-07-03 08:33] VITALS: BP 117/51; PULSE 71; RESP 18; TEMP 97.9
[2021-07-03] MEDS: KETOROLAC 15 MG/ML 1 ML VIAL IVP SCH (08:35)
== END 2021-07-03 10:42 | disposition home or self-care (01) | DRG 785 ==
LOC: 4FBP 05:43
PROVIDERS: ADMIT Obstetrics & Gynecology; ATTEND Obstetrics & Gynecology
PROC: 0UB70ZZ Excision of Bilateral Fallopian Tubes, Open Approach (ICD-10-PCS; 2021-07-01)
PROC: 10D00Z1 Extraction of Products of Conception, Low, Open Approach (ICD-10-PCS; principal; 2021-07-01 08:00)
DX: O34.211 Maternal care for low transverse scar from previous cesarean delivery (principal); Z37.0 Single live birth; Z30.2 Encounter for sterilization; Z3A.39 39 weeks gestation of pregnancy; Z87.891 Personal history of nicotine dependence; O99.02 Anemia complicating childbirth; M79.7 Fibromyalgia; O75.89 Other specified complications of labor and delivery; R11.2 Nausea with vomiting, unspecified
CPT/HCPCS: 85025; 86850; 86900; 86901; 88302